=== PATIENT | male | born 1965 ===

== ENCOUNTER 2017-06-26 13:26 | Day surgery (SDC) | payer OTHER ==
[~2017-06-26 13:26] MED LIST: DIPRIVAN VIAL ONE; VERSED ONE
[2017-06-26] MEDS ORDERED: TETRACAINE 0.5% OPHTH 1 DOSE AFFEYE ONE ×3 (13:30→15:21)
[2017-06-26] MEDS ORDERED: NS 500 ML IV 500 ML IV ONE (13:30)
[2017-06-26] MEDS ORDERED: VIGAMOX 0.5% OPHTH 1 DOSE AFFEYE ONE ×3 (13:31→13:41)
[2017-06-26] MEDS ORDERED: PROLENSA OPHTH 1 DOSE AFFEYE ONE (13:42)
[2017-06-26] MEDS ORDERED: ALPHAGAN-P OPHTH 1 DOSE AFFEYE ONE (13:43)
[2017-06-26] MEDS ORDERED: MYDRIACIL OPHTH 1 DOSE AFFEYE ONE ×6 (13:44→13:49)
[2017-06-26] MEDS ORDERED: AK-DILATE 2.5% OPHTH 1 DOSE OP ONE ×6 (13:44→13:49)
[2017-06-26] MEDS ORDERED: CYCLOGYL 1% OPHTH 1 DOSE OP ONE ×6 (13:44→13:49)
[2017-06-26] MEDS ORDERED: BETADINE OPHTH SOLN 5% EACHEYE ONE (15:15)
[2017-06-26] MEDS ORDERED: DUOVISC IO ONE (15:21)
[2017-06-26] MEDS ORDERED: ADRENALINE CHL INJ IR ONE (15:21)
[2017-06-26] MEDS ORDERED: XYLOCAINE-MPF 1% IJ ONE (15:21)
[2017-06-26] MEDS ORDERED: VIGAMOX 0.5% AFFEYE ONE (15:25)
[2017-06-26] MEDS ORDERED: BSS OPHTH (PLAIN) 500 ML with VANCOMYCIN HCL 500 MG VIAL 25 MG, ADRENALINE CHL INJ 1 MG IR ONE ×3 (15:26)
[2017-06-26 16:42] VITALS: BP 120/76
== END 2017-06-26 15:56 | disposition home or self-care (01) ==
LOC: SURG1 13:26
PROVIDERS: ATTEND Ophthalmology
PROC: 08DJ3ZZ Extraction of Right Lens, Percutaneous Approach (ICD-10-PCS; principal; 2017-06-26 18:45)
PROC: 08RJ3JZ Replacement of Right Lens with Synthetic Substitute, Percutaneous Approach (ICD-10-PCS; principal; 2017-06-26 18:45)
DX: H25.11 Age-related nuclear cataract, right eye (principal); H25.011 Cortical age-related cataract, right eye; H52.221 Regular astigmatism, right eye
CPT/HCPCS: A4217; J0170; J2250; J3370; J3490

== ENCOUNTER 2017-07-31 10:37 | Day surgery (SDC) | payer OTHER ==
[2017-07-31] MEDS ORDERED: VERSED ONE (10:51)
[2017-07-31] MEDS ORDERED: DIPRIVAN VIAL ONE (10:51)
[2017-07-31] MEDS ORDERED: NS 500 ML IV 500 ML IV ONE (11:08)
[2017-07-31] MEDS ORDERED: TETRACAINE 0.5% OPHTH 1 DOSE AFFEYE ONE ×2 (11:23→14:11)
[2017-07-31] MEDS ORDERED: VIGAMOX 0.5% OPHTH 1 DOSE AFFEYE ONE ×5 (11:25→14:34)
[2017-07-31] MEDS ORDERED: PROLENSA OPHTH 1 DOSE AFFEYE ONE (11:37)
[2017-07-31] MEDS ORDERED: ALPHAGAN-P OPHTH 1 DOSE AFFEYE ONE (11:39)
[2017-07-31] MEDS ORDERED: AK-DILATE 2.5% OPHTH 1 DOSE OP ONE ×5 (11:40→11:48)
[2017-07-31] MEDS ORDERED: CYCLOGYL 1% OPHTH 1 DOSE OP ONE ×5 (11:40→11:48)
[2017-07-31] MEDS ORDERED: MYDRIACIL OPHTH 1 DOSE AFFEYE ONE ×5 (11:40→11:48)
[2017-07-31] MEDS ORDERED: BETADINE OPHTH SOLN 5% EACHEYE ONE (14:11)
[2017-07-31] MEDS ORDERED: ADRENALINE CHL INJ IJ ONE (14:21)
[2017-07-31] MEDS ORDERED: XYLOCAINE-MPF 1% IJ ONE (14:21)
[2017-07-31] MEDS ORDERED: BSS OPHTH (PLAIN) 500 ML with VANCOMYCIN HCL 500 MG VIAL 25 MG, ADRENALINE CHL INJ 1 MG IR ONE ×3 (14:21)
[2017-07-31] MEDS ORDERED: DUOVISC IO ONE (14:21)
[2017-07-31 14:53] VITALS: BP 127/81
== END 2017-07-31 14:55 | disposition home or self-care (01) ==
LOC: SURG1 10:37
PROVIDERS: ATTEND Ophthalmology
PROC: 08DK3ZZ Extraction of Left Lens, Percutaneous Approach (ICD-10-PCS; principal; 2017-07-31 17:15)
PROC: 08RK3JZ Replacement of Left Lens with Synthetic Substitute, Percutaneous Approach (ICD-10-PCS; principal; 2017-07-31 17:15)
DX: H25.12 Age-related nuclear cataract, left eye (principal); H25.012 Cortical age-related cataract, left eye; H52.222 Regular astigmatism, left eye
CPT/HCPCS: A4217; J0170; J2250; J3370; J3490